=== PATIENT | female | born 2000 | race Caucasian/White ===

== ENCOUNTER 2018-06-07 17:57 | Emergency (ER) | payer SELFPAY ==
[2018-06-07] MEDS ORDERED: Ondansetron HCl/PF 4 MG/2 ML Vial ONE (19:25)
[2018-06-07 19:52] LABS: #Lymphocytes 1.5 thou/uL (1.20-3.40); #Monocytes 0.6 thou/uL (0.11-0.59); #Neutrophils 6.1 thou/uL (1.40-6.50); %Basophils 0.4 % (0.0-1.0); %Eosinophils 0.2 % (0.0-10.0); %Lymphocytes 17.8 % (28.0-48.0); %Monocytes 6.9 % (0.0-4.0); %Neutrophils 74.7 % (31.0-61.0); Hemoglobin 12.4 g/dL (12.0-16.0); Mean Corpuscular HGB CONC 34.6 g/dL (32.0-36.0); Mean Corpuscular Hemoglobin 31.7 pg (25.0-35.0); Mean Corpuscular Volume 91.5 fL (78.0-98.0); Mean Platelet Volume 7.9 fL (7.4-10.4); Platelet Count 200 thou/uL (130-400); RBC Distribution Width 11.4 % (11.5-14.5); White Blood Cell (WBC) Count 8.2 thou/uL (4.8-10.8)
[2018-06-07 20:00] LABS: Prothrombin Time 13.4 SEC (12.0-14.7)
[2018-06-07 20:15] LABS: ALT (SGPT) 9 U/L (8-55); AST (SGOT) 11 U/L (5-30); Albumin 4.4 g/dL (3.5-5.0); Alkaline Phosphatase 41 U/L (40-150); Anion Gap 15 mmol/L (10-20); BUN (Urea Nitrogen) 15 mg/dL (8.4-21.0); Bilirubin, Total 0.8 mg/dL (0.2-1.2); CK (CPK) 29 U/L (29-168); Calc. Creatinine Clearance 0 mL/min (70-130); Calcium 9.8 mg/dL (7.8-10.44); Carbon Dioxide 22 mmol/L (22-29); Chloride 104 mmol/L (98-107); Estimated GFR-MDRD 90; Globulin 3.2 g/dL (2.4-3.5); Glucose 108 mg/dL (70-105); Lipase 20 U/L (8-78); Potassium 3.7 mmol/L (3.5-5.1); Protein, Total 7.6 g/dL (6.0-8.3); Sodium 137 mmol/L (136-145)
[2018-06-07] MEDS ORDERED: Famotidine/PF 20 mg/2ml Vial ONE (20:18)
[2018-06-07] MEDS ORDERED: methylPREDNISolone Sod Succ/PF 125 MG/2 ML VIAL ONE (20:18)
[2018-06-07] MEDS ORDERED: diphenhydrAMINE 50 MG/ML VIAL ONE (20:18)
[2018-06-07] MEDS ORDERED: Water For Inject, Bacteriostat 0 ML ONE (20:18)
[2018-06-07 20:20] LABS: CKMB 0.4 ng/mL (0-6.6); Troponin I Less than 0.010 ng/mL (< 0.028)
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
[2018-06-07 22:02] LABS: BHCG - Serum Negative (NEGATIVE); Pregs Control Background? CLEAR/WHITE (CLR/WHITE); Pregs Control Bar Appear? YES (CONTROL BAR)
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
== END 2018-06-07 23:30 | disposition home or self-care (01) ==
LOC: ERS 17:57
DX: R07.9 Chest pain, unspecified (principal); F41.9 Anxiety disorder, unspecified; F32.9 Major depressive disorder, single episode, unspecified; Z79.899 Other long term (current) drug therapy
CPT/HCPCS: 71045; 71260; 80053; 82553; 83690; 83880; 84484; 84703; 85025; 85610; 85730; 93005; 94760; 96361; 96374; 96375; J1200; J2270; J2405; J2930; S0028